=== PATIENT | female | born 1970 | race American Indian/Alaskan Native ===

== ENCOUNTER 2018-02-09 05:34 | Emergency (ER) | payer OTHER ==
[2018-02-09] MEDS ORDERED: MOTRIN PO ONE (07:14)
--- NOTE | 2018-02-09 07:14 | Emergency Department Report ---
ED Lower Extremity HPI - General Chief Complaint: Extremity Injury, Lower Stated Complaint: KNEE PAIN Time Seen by Provider: 02/09/18 07:01 Source: patient Mode of arrival: Wheelchair Limitations: Physical Limitation - History of Present Illness Initial Comments: Patient reports that she has left knee pain after she fell 20 minutes prior to coming to the hospital. 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 Worse with movement. Pain is constant even at rest. Denies any numbness or tingling or radiation of pain proximally or distally. She's had a history of left knee surgery in the past. Patient is here she says she needs an x-ray due to her surgery in the past. MD Complaint: knee injury (left knee pain after falling) -: This morning Injury: Knee: Left (pain after falling) Type of Injury: inversion Severity: severe Severity scale (0 -10): 8 Improves With: nothing Worsens With: weight bearing, movement Context: fall Associated Symptoms: ambulatory. denies: swelling, numbness, tingling, unable to bear weight, able to partially bear weight Treatments Prior to Arrival: other (none) - Related Data Previous Rx's Medication Instructions Recorded Last Taken Type Acetaminophen/Codeine [Tylenol 1 tab PO Q6H PRN #12 tab 02/09/18 Unknown Rx /Codeine # 3 tab] Ibuprofen [Motrin] 600 mg PO Q8H PRN #15 tablet 02/09/18 Unknown Rx Allergies Allergy/AdvReac Type Severity Reaction Status Date / Time No Known Allergies Allergy Unverified 02/09/18 05:46 ED Review of Systems ROS: Stated complaint: KNEE PAIN Other details as noted in HPI Constitutional: denies: chills, fever Respiratory: denies: cough, shortness of breath, SOB with exertion, SOB at rest , stridor, wheezing Cardiovascular: denies: chest pain, palpitations, edema, syncope Gastrointestinal: denies: nausea, vomiting Genitourinary: denies: urgency, dysuria, discharge Musculoskeletal: arthralgia. denies: back pain, joint swelling, myalgia Skin: denies: rash, lesions Neurological: denies: headache, weakness, numbness, paresthesias, confusion, abnormal gait, vertigo ED Past Medical Hx - Past Medical History Previous Medical History?: Yes Hx Asthma: Yes - Surgical History Past Surgical History?: Yes Additional Surgical History: left knee surgery - Family History Family history: hypertension - Social History Smoking Status: Never Smoker Substance Use Type: Alcohol - Medications Home Medications: Home Medications Medication Instructions Recorded Confirmed Last Taken Type Acetaminophen/Codeine [Tylenol 1 tab PO Q6H PRN #12 tab 02/09/18 Unknown Rx /Codeine # 3 tab] Ibuprofen [Motrin] 600 mg PO Q8H PRN #15 tablet 02/09/18 Unknown Rx ED Physical Exam - General Limitations: Physical Limitation General appearance: alert, in no apparent distress - Head Head exam: Present: atraumatic, normocephalic, normal inspection - Eye Eye exam: Present: normal appearance, PERRL, EOMI Pupils: Present: normal accommodation - ENT ENT exam: Present: normal exam, normal orophraynx, mucous membranes moist - Neck Neck exam: Present: normal inspection, full ROM, other (no C-spine tenderness). Absent: tenderness, meningismus, lymphadenopathy - Respiratory Respiratory exam: Present: normal lung sounds bilaterally. Absent: respiratory distress, chest wall tenderness - Cardiovascular Cardiovascular Exam: Present: regular rate, normal rhythm, normal heart sounds. Absent: systolic murmur, diastolic murmur - Extremities Exam Extremities exam: Present: normal inspection, full ROM, tenderness (left knee), normal capillary refill, other (no clubbing, cyanosis or edema. Positive pulses all extremities and no neurovascular compromise). Absent: pedal edema, joint swelling, calf tenderness - Expanded Lower Extremity Exam Left Hip exam: Present: normal inspection, full ROM, pelvic stability. Absent: tenderness, swelling, abrasion, laceration, ecchymosis, deformity, crepidus, dislocation, erythema, external rotation, internal rotation, shortening Upper Leg exam: Present: normal inspection, full ROM. Absent: tenderness, swelling, abrasion, laceration, ecchymosis, deformity, crepidus, dislocation, erythema Knee exam: Present: normal inspection, full ROM (full range of motion to left knee but pain with flexion and extension), tenderness (N did palpate her anterior knee), full knee extension. Absent: swelling, abrasion, laceration, ecchymosis, deformity, crepidus, dislocation, erythema, effusion, pain w/ pronation/supination, posterior draw sign, pain/laxity with valgus, pain/laxity with varus Lower Leg exam: Present: normal inspection, full ROM. Absent: tenderness, swelling, abrasion, laceration, ecchymosis, deformity, crepidus, dislocation, erythema, palpable cord, Jenelle's sign Ankle exam: Present: normal inspection, full ROM. Absent: tenderness, swelling , abrasion, laceration, ecchymosis, deformity, crepidus, dislocation, erythema Foot/Toe exam: Present: normal inspection, full ROM. Absent: tenderness, swelling, abrasion, laceration, ecchymosis, deformity, crepidus, dislocation, erythema, amputation, puncture wound, foreign body, calcaneal tenderness, tenderness at base of 5th metatarsal, nail avulsion, subungual hematoma Neuro vascular tendon exam: Present: no vascular compromise. Absent: pulse deficit, abnormal cap refill, motor deficit, sensory deficit, tendon deficit, extremity cold to touch, pallor, abnormal 2-point discrimination, decreased fine /light touch, foot drop, peroneal nerve deficit, significant pain with passive ROM of distal joint Gait: Positive: observed and limited by pain - Back Exam Back exam: Present: normal inspection, full ROM. Absent: tenderness, paraspinal tenderness, vertebral tenderness - Neurological Exam Neurological exam: Present: alert, oriented X3, normal gait, reflexes normal. Absent: motor sensory deficit - Psychiatric Psychiatric exam: Present: normal affect, normal mood - Skin Skin exam: Present: warm, dry, intact, normal color. Absent: rash ED Course Vital Signs 02/09/18 02/09/18 02/09/18 05:36 05:46 07:18 Temperature 97.7 F 97.7 F Pulse Rate 65 59 L Respiratory 18 18 18 Rate Blood Pressure 138/94 138/94 Blood Pressure [Right] O2 Sat by Pulse 98 97 Oximetry 02/09/18 09:21 Temperature 97.8 F Pulse Rate 63 Respiratory 15 Rate Blood Pressure Blood Pressure 140/96 [Right] O2 Sat by Pulse 100 Oximetry - Reevaluation(s) Reevaluation #1: 02/09/18 10:06 Patient given Motrin 800 mg by mouth times one dose in the emergency room relief of pain. See procedure note for Pedro Luis wrap - Orthopedic Splinting/Casting Injury #1 Side: left Lower Extremity Injury Location: knee Lower Extremity Immobilizer: Pedro Luis wrap Additional Comments: Patient with good color, sensation and movement and temperature to extremities. Pedal pulses are 2+ and bounding ED Lower Extremity MDM - Radiology Data Radiology results: report reviewed, image reviewed interpreted by me: X-ray of left knee reveal no acute findings. Radiology films reviewed by myself and Dr. Dyer. Patient had previous surgery to her left knee. Appears to have osteophyte which is subacute. Patient had x-ray of left knee which was dictated by radiologist and report reviewed by myself. See below for details Findings Patient: ROYA HEREDIA MR#: [id number] : 1970 Acct:[id number] Age/Sex: 47 / F ADM Date: 02/09/18 Loc: ED Attending Dr: Ordering Physician: MYA LOW Date of Service: 02/09/18 Procedure(s): XR knee 3V LT Accession Number(s): [id number] cc: MYA LOW Fluoro Time In Minutes: Left knee: Trauma, pain. Degenerative periarticular spurs are identified involving the medial joint space. There is mild narrowing of the joint space. The articular surfaces are smooth. There is no fracture deformity. There is normal alignment of the knee. No effusion. Impression: Degenerative medial compartment changes. Transcribed By: [facility] Dictated By: JORDON HENLEY MD Electronically Authenticated By: JORDON HENLEY MD Signed Date/Time: 02/09/18 110 DD/ 110 TD/TT: 02/09/18 1109 - Medical Decision Making ED course: This is a 47-year-old female here reports that she slipped and fell at work this morning when she came in. She is reporting left knee pain and swelling. She says she is here to be checked because she had prior surgery to her left knee and she thinks make sure that it's not reinjured. She was seen and examined by myself. Left knee tender to palpate anteriorly with mild swelling. No effusion or abrasion. No ecchymotic area. Patient able to ambulate. Pulses to both feet are 2+ and bounding. X-ray of left knee 3 views dictated by radiologist and report reviewed by myself. Vision found to have degenerative changes and left knee. No acute abnormality seen. This was relayed to patient and she voiced understanding. 1: Left knee contusion-Rice therapy, Pedro Luis wrap 2:Arthralgia left knee -patient given Motrin 800 mg by mouth in emergency room 1 and will be sent home on pain medication 3: Accidental fall-educated on follow-up transient Patient educated on medication, treatment plan, diagnosis, x-ray results, Rice therapy and she voiced understanding. She was instructed to follow up with her primary care in 3 days and orthopedic doctor in 3-5 days. Vital signs are stable and she is afebrile. Pain is better. I discussed the patient to return to the emergency room for condition worsens otherwise follow up primary care and orthopedic . She voiced understanding. - Differential Diagnosis knee fracture, contusion, sprain, strain, musculoskeletal pain Critical care attestation.: If time is entered above; I have spent that time in minutes in the direct care of this critically ill patient, excluding procedure time. ED Disposition Clinical Impression: Accidental fall Qualifiers: Encounter type: initial encounter Qualified Code(s): W19.XXXA - Unspecified fall, initial encounter Muscle strain of left knee Qualifiers: Encounter type: initial encounter Qualified Code(s): S86.912A - Strain of unspecified muscle(s) and tendon(s) at lower leg level, left leg, initial encounter Knee pain, acute Qualifiers: Laterality: left Qualified Code(s): M25.562 - Pain in left knee Disposition: DC-01 TO HOME OR SELFCARE Is pt being admited?: No Does the pt Need Aspirin: No Condition: Stable Instructions: Muscle Strain (ED), Knee Pain (ED), Arthralgia (ED), Knee Exercises (GEN) Additional Instructions: Please follow up with orthopedic doctor as instructed follow discharge instruction in Rice therapy Take Tylenol No. 3 for severe pain and Motrin for mild to moderate pain Prescriptions: Acetaminophen/Codeine [Tylenol /Codeine # 3 tab] 1 tab PO Q6H PRN #12 tab PRN Reason: severe pain Ibuprofen [Motrin] 600 mg PO Q8H PRN #15 tablet PRN Reason: Pain Referrals: PRIMARY MD ROSEMARIE [Primary Care Provider] - 02/12/18 JORDON PARNELL MD [Staff Physician] - 3-5 Days Forms: Work/School Release Form(ED)
[2018-02-09 09:22] VITALS: BP 140/96
--- NOTE | 2018-02-09 11:31 | XRay Report ---
Left knee: Trauma, pain. Degenerative periarticular spurs are identified involving the medial joint space. There is mild narrowing of the joint space. The articular surfaces are smooth. There is no fracture deformity. There is normal alignment of the knee. No effusion. Impression: Degenerative medial compartment changes.
== END 2018-02-09 10:34 | disposition home or self-care (01) ==
LOC: ED 05:34
DX: S86.912A Strain of unspecified muscle(s) and tendon(s) at lower leg level, left leg, initial encounter (principal); J45.909 Unspecified asthma, uncomplicated; W17.89XA Other fall from one level to another, initial encounter; Y93.89 Activity, other specified; Y92.89 Other specified places as the place of occurrence of the external cause; Y99.8 Other external cause status